=== PATIENT | female | born 1980 | race Caucasian/White ===

== ENCOUNTER 2016-06-29 20:18 | Emergency (ER) | payer OTHER ==
[2016-06-29 20:34] VITALS: TEMP 98; BMI 64.3
--- NOTE | 2016-06-29 21:22 | PDOC ---
History of Present Illness - General History Source: Patient Exam Limitations: No Limitations - History of Present Illness Initial Comments: 06/29/16 23:27 Chief complaint: Right elbow pain with inability to straighten at elbow History of present illness: Patient is a 35-year-old female with history of right elbow dislocation on and as a child. Patient reports that she had a splint on her right arm for 2 weeks after the dislocation and was seen at [facility]. Patient's oral orthopedist the following day is unsure of his name. Patient was the see the orthopedist this coming Saturday on 2016. Patient was told that she could take the splint off of her arm after 2 weeks she did. Patient reports that this evening at approximately 7 PM she was reaching over her head for something on a shelf when she felt her elbow dislocate again. Patient was unable to straighten her right elbow since this occurred this evening. Patient denies any numbness of her right arm. Patient reports that area is painful if she tries to move it. Patient denies any chance of and refused a urine hCG prior to having x-ray of rt. elbow here. Deformity of elbow noted rt. Pt. is rt. handed. 06/29/16 23:33 06/29/16 23:34 Occurred: reports: this evening (at 7 pm ) Severity: reports: moderate Upper Extremity Pain Location: right: elbow (unable to straighten felt it click out of place ) Method of Injury: reports: other (raising her rt. arm over her head to grap something) Modifying Factors: improves with: None <Mary El - Last Filed: 06/30/16 12:55> <Iveth Morel - Last Filed: 06/30/16 21:29> - General Chief Complaint: Injury Stated Complaint: RT ELBOW INJURY Time Seen by Provider: 06/29/16 21:09 Extremity Pain Location - Extremity Pain Location Extremity Pain Locations: right: elbow (with movement ) <Mary El - Last Filed: 06/30/16 12:55> Past History - Past Medical History Asthma: No Cancer: No Cardiac Disorders: No Diabetes: No HTN: No Seizures: No Thyroid Disease: No Other medical history: rt. elbow dislocation 06/04/16 - Reproductive History (#): 4 Para: 1 Cervical CA: No Dysfunctional Uterine Bleeding: No Ectopic : No Endometrial CA: No Polycystic Ovaries: No Therapeutic (s) & number: Yes (2) Tubal Ligation: No - Psycho/Social/Smoking Cessation Hx Anxiety: No Suicidal Ideation: No Smoking Status: No Smoking History: Never smoked Number of Cigarettes Smoked Daily: 0 Hx Alcohol Use: Yes (OCCASIONALLY) Drug/Substance Use Hx: No Hx Substance Use Treatment: No <Mary El - Last Filed: 06/30/16 12:55> <Iveth Morel - Last Filed: 06/30/16 21:29> - Past Medical History Allergies/Adverse Reactions: Allergies Allergy/AdvReac Type Severity Reaction Status Date / Time Penicillins AdvReac Intermediate Rash Verified 06/29/16 20:27 Home Medications: Ambulatory Orders NK [No Known Home Medication] 06/29/16 Review of Systems - Review of Systems Able to Perform ROS?: Yes Constitutional: No: Symptoms Reported HEENTM: No: Symptoms Reported Respiratory: No: Symptoms reported Cardiac (ROS): No: Symptoms Reported ABD/GI: No: Symptoms Reported : No: Symptoms Reported Musculoskeletal: Yes: Joint Pain (rt. elbow pain unable to straighten at elbow ) Integumentary: No: Symptoms Reported Neurological: No: Symptoms reported <Mary El - Last Filed: 06/30/16 12:55> *Physical Exam - Vital Signs Last Vital Signs Temp Pulse Resp BP Pulse Ox 98 F 92 H 22 160/90 99 06/29/16 20:28 06/29/16 20:28 06/29/16 20:28 06/29/16 20:28 06/29/16 20:28 - Physical Exam General Appearance: Yes: Appropriately Dressed Comments:: 06/29/16 23:32 radial pulse 4 + rt. Extremity: positive: Normal Capillary Refill, Tender (rt. elbow ), Other ( deformity rt. elbow). negative: Normal Range of Motion (rt. elbow unable to straighten ) Integumentary: positive: Normal Color Neurologic: positive: Alert, Normal Response, Respond to painful stimul (rt. arm forearm, elbow, upper arm). negative: Motor Strength 5/5 (decreased rt. elbow), Sensory Deficit (rt. arm) <Mary El - Last Filed: 06/30/16 12:55> - Vital Signs Last Vital Signs Temp Pulse Resp BP Pulse Ox 98 F 92 H 22 160/90 99 06/29/16 20:28 06/29/16 20:28 06/29/16 20:28 06/29/16 20:28 06/29/16 20:28 <Iveth Morel - Last Filed: 06/30/16 21:29> Procedures - Joint Reduction Right Joint Reduction Site: right: Radial Head Pre-Procedure NV Exam: normal Conscious Sedation: Yes (fentanyl 100mcg;versed 4mcg; [id number]) Reduction Attempts: 1 Anesthesia: Fentanyl (100mcg) Amt. of medication administered: 100mcg Procedure: Other Post-Procedure NV Exam: normal Complications: No Post Joint Reduction Film: joint reduced Splint: Yes Immobilized: Yes <Iveth Morel - Last Filed: 06/30/16 21:29> ED Treatment Course - RADIOLOGY Radiology Studies Ordered: Category Date Time Status ELBOW-RIGHT [RAD] Stat Radiology 06/30/16 00:57 Taken - Medications Given in the ED: ED Medications Discontinued Medications Generic Name Dose Route Start Last Admin Trade Name Negro PRN Reason Stop Dose Admin Fentanyl 100 mcg 06/30/16 00:04 06/30/16 00:57 Sublimaze Injection - IVPUSH 06/30/16 00:05 100 mcg ONCE ONE Administration Midazolam HCl 2 mg 06/30/16 00:04 06/30/16 00:58 Versed - IVPUSH 06/30/16 00:05 2 mg ONCE ONE Administration Sodium Chloride 1,000 ml 06/30/16 00:04 06/30/16 00:57 Normal Saline - IV 06/30/16 00:05 1,000 ml ONCE ONE Administration <Iveth Morel - Last Filed: 06/30/16 21:29> Medical Decision Making - Medical Decision Making 06/29/16 23:34 Patient is a 35-year-old female with history of right elbow dislocation on 2016 and as a child after a fall. Patient reports that she had a splint on her right arm for 2 weeks after the dislocation and was seen at [facility]. Patient's oral orthopedist the following day is unsure of his name. Patient was the see the orthopedist this coming Saturday on 07/03/2016. Patient was told that she could take the splint off of her arm after 2 weeks she did. Patient reports that this evening at approximately 7 PM she was reaching over her head for something on a shelf when she felt her elbow dislocate again. Patient was unable to straighten her right elbow since this occurred this evening. Patient denies any numbness of her right arm. Patient reports that area is painful if she tries to move it. Patient denies any chance of and refused a urine hCG prior to having x-ray of rt. elbow here. Deformity of elbow noted rt. Pt. is rt. handed. She reports that at [facility] on on the x-ray days also small to bony fragments that were calcified per.pt. Rt. elbow deformity r/o dislocation PLAN: xray rt. elbow dislocation with 2 ortega fragments that may be related to an old fracture per Dr. Ac Carrillo call for ortho stat consult pointing to him that she had a previous dislocation of right elbow on and was seen at [facility] and was followed by an orthopedist that she was referred to patient was unsure of the name of orthopedist Dr. Carrillo stated that it had to have been Dr. Mitchell since he did not see her and neither did Dr. Munoz and that I should reduce the dislocation and call to Dr. Mitchell. I went to Dr. Morel she recommended that pt. will be transferred main ED, Prabhjot charge notified pt. not given anything for pain here due to her needing sedation to reduce rt. elbow 06/29/16 23:39 Dr. Mitchell called left message with answering service to have him call back <Mary El - Last Filed: 06/30/16 12:55> - Medical Decision Making 06/30/16 21:28 Pt's radial head was relocated with the help of my colleage Dr. Agosto. Successful reduction; pt tolerated conscious sedation well. Follow with ortho. Pt had a posterior splint applied and a splint. <Iveth Morel - Last Filed: 06/30/16 21:29> *DC/Admit/Observation/Transfer <Mary El - Last Filed: 06/30/16 12:55> - Discharge Dispostion Admit: No <Iveth Morel - Last Filed: 06/30/16 21:29> Diagnosis at time of Disposition: Radial head dislocation Elbow dislocation Qualifiers: Encounter type: initial encounter Laterality: right Qualified Code(s): S53.104A - Unspecified dislocation of right ulnohumeral joint, initial encounter - Discharge Dispostion Disposition: HOME Condition at time of disposition: Improved - Referrals Referrals: Hope Roman [Primary Care Provider] - - Patient Instructions Printed Discharge Instructions: DI for Pulled Elbow, DI for Elbow Dislocation - Post Discharge Activity Work/School Note: Back to Work
[2016-06-30] MEDS ORDERED: MIDAZOLAM HCL 2 MG/2 ML SINGLE DOSE VIAL IVPUSH ONE (00:04)
[2016-06-30] MEDS ORDERED: SODIUM CHLORIDE 0.9% 500 ML INFUS.BAG IV ONE (00:04)
[2016-06-30] MEDS ORDERED: MIDAZOLAM HCL 2 MG/2 ML SINGLE DOSE VIAL ONE (00:28)
[2016-06-30] MEDS ORDERED: KETAMINE HCL 200 MG/20 ML VIAL ONE (00:43)
[2016-06-30] MEDS ORDERED: KETAMINE HCL 200 MG/20 ML VIAL IVPUSH ONE (01:05)
[2016-06-30] MEDS ORDERED: IBUPROFEN 600 MG TABLET (FP) PO ONE ×2 (01:52→01:55)
[2016-06-30 07:02] VITALS: BP 131/78; PULSE 82
== END 2016-06-30 02:19 | disposition home or self-care (01) ==
LOC: JER 20:18
PROC: 3E033NZ Introduction of Analgesics, Hypnotics, Sedatives into Peripheral Vein, Percutaneous Approach (ICD-10-PCS; principal; 2016-06-29)
PROC: 0RSLXZZ Reposition Right Elbow Joint, External Approach (ICD-10-PCS; 2016-06-29)
PROC: 2W38X1Z Immobilization of Right Upper Extremity using Splint (ICD-10-PCS; 2016-06-29)
DX: M24.421 Recurrent dislocation, right elbow (principal); X50.1XXA Overexertion from prolonged static or awkward postures, initial encounter; X50.9XXA Other and unspecified overexertion or strenuous movements or postures, initial encounter; Y93.89 Activity, other specified; Y92.038 Other place in apartment as the place of occurrence of the external cause
CPT/HCPCS: 24605; 29105; 73070-TC-RT; 96374; 96375; 99281-25